=== PATIENT | male | born 1950 | race Caucasian/White ===

== ENCOUNTER 2021-06-05 11:51 | Emergency (ER) | payer BC, OTHER ==
[2021-06-05 12:04] VITALS: BP 105/48; PULSE 63; TEMP 98; BMI 25.7
[2021-06-05] MEDS ORDERED: DIPHTH,PERTUSS(ACELL),TET 0.5 ML DISP.SYRIN IM ONE ×2 (12:25→13:53)
[2021-06-05] MEDS ORDERED: LIDOCAINE HCL 2% (50ML VIAL) INF ONE (13:03)
[2021-06-05] MEDS ORDERED: LIDOCAINE HCL 2% (20ML MULTI-DOSE VIAL) ONE (13:33)
== END 2021-06-05 14:03 | disposition home or self-care (01) ==
LOC: FER 11:51
PROC: 3E0234Z Introduction of Serum, Toxoid and Vaccine into Muscle, Percutaneous Approach (ICD-10-PCS; principal; 2021-06-05)
DX: S63.259A Unspecified dislocation of unspecified finger, initial encounter (principal); W10.9XXA Fall (on) (from) unspecified stairs and steps, initial encounter
CPT/HCPCS: 73130-TC-RT-FY; 90715; 99284-25